=== PATIENT | male | born 1975 | race Caucasian/White ===

== ENCOUNTER 2016-09-15 23:56 | Emergency (ER) | payer OTHER | END 2016-09-16 01:13 | disposition other institution (70) | LOC: ED 23:56 | DX: Z02.89 Encounter for other administrative examinations (principal) ==

== ENCOUNTER 2016-09-15 23:56 | Emergency (ER) | payer OTHER ==
[2016-09-16 01:13] VITALS: BP 132/68
== END 2016-09-16 01:13 | disposition other institution (70) ==
LOC: ED 23:56
DX: S60.222A Contusion of left hand, initial encounter (principal); S60.221A Contusion of right hand, initial encounter; L03.114 Cellulitis of left upper limb; L03.113 Cellulitis of right upper limb; R03.0 Elevated blood-pressure reading, without diagnosis of hypertension; Z79.899 Other long term (current) drug therapy; W22.8XXA Striking against or struck by other objects, initial encounter; Y93.89 Activity, other specified; Y92.89 Other specified places as the place of occurrence of the external cause; Y99.8 Other external cause status
CPT/HCPCS: 90715